=== PATIENT | female | born 1970 ===

== ENCOUNTER 2017-12-17 19:17 | Emergency (ER) | payer OTHER ==
[~2017-12-17] VITALS: Ht 165.1 cm; Wt 85.3 kg
[~2017-12-17 19:17] MED LIST: (None)15 G1 EXT; ACET325 PO; ACET500 PO; ACYC200 PO; ALBIPROI INH; AZIT250 PO; BORIC ACID; BUPR100 PO; BUPR150T2 PO; CHLO25 PO; CIPR250 PO; CLIN300 PO; CYCL10 PO; Cipro500 MG PO; Clindamycin HC150 MG PO; DEXGUASY PO; DIPATR PO; DOXY100 PO; ERYES400 PO; FERR325 PO; FLUC150A PO; HYDACE5 PO; HYDROCODON-ACE1 EAC3 PO; IBUP400 PO; IBUP600 PO; METR500 PO; MULVITMINE PO; MUPI2TC TOP; NAPR500 PO; Nizoral15 GM TOP; OXYACE5T PO; PHENA200 PO; PROBIOTIC1 EAC1 PO; PROM25 PO; Prednisone20 MG PO; Pyridium200 MG PO; RXCLIN PO; RXHYDACE PO; SULTRIDS PO; TRAM50 PO; Vibramycin100 MG PO; Zofran4 MG PO; [UNRECOGNIZED DRUG - OTHER] TP
[2017-12-17] MEDS ORDERED: BUPR75 PO (19:43)
[2017-12-17] MEDS ORDERED: Omeprazole20 M1 (19:43)
[2017-12-17 20:23] LABS: BASOPHILS ABSOLUTE AUTO 0.05 K/mm3 (0.00-0.23); BASOPHILS PERCENT AUTO 1 % (0-2); EOSINOPHILS ABSOLUTE AUTO 0.04 K/mm3 (0.00-0.68); EOSINOPHILS PERCENT AUTO 1 % (0-6); Hematocrit 41.6 % (33.0-51.0); Hemoglobin 14.2 g/dL (11.5-16.0); IMMATURE GRAN ABSOLUTE AUTO 0.02 K/mm3 (0.00-0.10); IMMATURE GRAN PERCENT AUTO 0 % (0-1); LYMPHOCYTES ABSOLUTE AUTO 2.68 K/mm3 (0.84-5.20); LYMPHOCYTES PERCENT AUTO 37 % (21-46); MONOCYTES ABSOLUTE AUTO 0.67 K/mm3 (0.16-1.47); MONOCYTES PERCENT AUTO 9 % (4-13); Mean Corpuscular HGB 33.6 pg (26.0-34.0); Mean Corpuscular HGB Conc 34.1 g/dL (31.5-36.5); Mean Corpuscular Volume 99 fL (80-100); NEUTROPHILS ABSOLUTE AUTO 3.88 K/mm3 (1.96-9.15); NEUTROPHILS PERCENT AUTO 53 % (41-73); Platelet Count 258 K/mm3 (150-400); RDW Coefficient Variation 12.2 % (11.7-14.2); RDW Standard Deviation 44.5 fL (35.1-46.3); Red Blood Cell Count 4.22 M/mm3 (3.80-5.20); White Blood Cell Count 7.34 K/mm3 (4.00-11.30)
[2017-12-17 20:59] LABS: Troponin I <0.015 ng/mL (0.000-0.040)
[2017-12-17 21:03] LABS: Alanine Aminotransfer (ALT/SGP 78 U/L (12-78); Albumin, Blood 3.8 g/dL (3.4-5.0); Alk Phos 64 U/L (50-136); Anion Gap 11 mmol/L (6-16); Aspartate Aminotrans (AST/SGOT 66 U/L (12-37); Bilirubin, Total 0.4 mg/dL (0.1-1.0); Blood Urea Nitrogen 9 mg/dL (8-24); Bun/Creatinine Ratio 13.9 (12.0-20.0); CO2, Blood 23 mmol/L (21-32); Calcium, Blood 8.9 mg/dL (8.5-10.1); Chloride, Blood 102 mmol/L (98-108); Creatinine, Blood 0.65 mg/dL (0.40-1.00); Glomerular Filtration Rate >60 (60-); Glucose, Blood 91 mg/dL (70-99); Potassium, Blood 3.9 mmol/L (3.5-5.5); Sodium, Blood 136 mmol/L (136-145); Total Protein, Blood 7.8 g/dL (6.4-8.2)
[2017-12-17] MEDS ORDERED: IBUP600 PO (23:07)
[2017-12-17] MEDS ORDERED: CHLO25 PO (23:32)
[2017-12-17] MEDS ORDERED: Protonix40 MG PO (23:32)
== END 2017-12-17 23:40 | disposition home or self-care (01) ==
LOC: ER 19:17
PROVIDERS: Emergency Medicine
DX: R07.9 Chest pain, unspecified (principal); F10.10 Alcohol abuse, uncomplicated; Z88.0 Allergy status to penicillin; Z79.899 Other long term (current) drug therapy; F17.200 Nicotine dependence, unspecified, uncomplicated
CPT/HCPCS: 36415; 71046; 80053; 84484; 85025; 93005; 93010; 99284-25

== ENCOUNTER 2020-06-18 01:51 | Emergency (ER) | payer OTHER ==
[~2020-06-18 01:51] MED LIST changes: +BUPR75 PO; +Macrodantin100 MG PO; +Omeprazole20 M1; +Protonix40 MG PO
== END 2020-06-18 02:20 | disposition left against medical advice (07) ==
LOC: ER 01:51
DX: R30.0 Dysuria (principal); F17.200 Nicotine dependence, unspecified, uncomplicated
CPT/HCPCS: 99282